=== PATIENT | male | born 1965 | race Caucasian/White ===

== ENCOUNTER → 2023-01-10 | Outpatient (CLI) | payer OTHER ==
--- NOTE | 2023-01-10 20:19 | XR ---
EXAMINATION TYPE: XR cervical spine limited DATE OF EXAM: 01/10/2023 COMPARISON: None HISTORY: Radiculopathy TECHNIQUE: 3 view cervical spine FINDINGS: Vertebral body alignment appears normal. Prevertebral space is normal. Anterior vertebral b flakito spurring is present C4-C5. Some mild posterior endplate spurring may be present C5-6. Posterior s ashley lamellar line is intact. The odontoid is visualized appears normal. There is limitation due to overlying occiput. IMPRESSION: 1. No acute osseous abnormality cervical spine.
== END | disposition home or self-care (01) ==
LOC: RADXRYALE 14:21
PROVIDERS: ATTEND Family Medicine
DX: M54.12 Radiculopathy, cervical region (principal)
CPT/HCPCS: 72040